=== PATIENT | male | born 1970 | race American Indian/Alaskan Native ===

== ENCOUNTER 2020-12-01 14:48 | Outpatient (CLI) | payer OTHER | END 2020-12-01 14:49 | disposition home or self-care (01) | LOC: PF 14:48 | PROVIDERS: ATTEND Internal Medicine | DX: J44.9 Chronic obstructive pulmonary disease, unspecified (principal); J40 Bronchitis, not specified as acute or chronic | CPT/HCPCS: 94060 ==